=== PATIENT | male | born 1945 | race Hispanic/Latino ===

== ENCOUNTER 2017-07-19 13:57 | Observation (INO) | payer MEDICARE ==
[2017-07-19 14:09] VITALS: RESP 20
[2017-07-19] MEDS ORDERED: Sodium Chloride 0.9% 1,000 ML IV STA (15:14)
--- NOTE | 2017-07-19 15:20 | ED PDOC ---
HPI: Male Pain Time Seen by Provider: 07/19/17 14:59 Chief Complaint (Nursing): Male Genitourinary Chief Complaint (Provider): Fever, burning urination History Per: Patient History/Exam Limitations: no limitations Onset/Duration Of Symptoms: Hrs Current Symptoms Are (Timing): Still Present Quality Of Discomfort: Burning Associated Symptoms: Fever, Chills, Urinary Symptoms (Burning). denies: Nausea , Vomiting, Diarrhea Additional Complaint(s): 71 y/o m with Hx of BPH, TIA and Prediabetes presents c/o dysuria and low grade fever since Yesterday. Patient also c/o chills. He has Hx of BPH and UTI in the past. Denies nocturia, lower back pain, hesitance, headache, vomiting, nausea, hematuria, constipation or frequency. Highest temp 100F. Past Medical History Reviewed: Vital Signs Vital Signs: Last Vital Signs Temp 100 F H 07/19/17 14:05 Pulse 96 H 07/19/17 14:05 Resp 20 07/19/17 14:05 BP 119/66 07/19/17 14:05 Pulse Ox 95 07/19/17 14:05 - Medical History PMH: Benign Prostatic Hyperplasia, HTN, TIA - Family History Family History: States: Unknown Family Hx - Home Medications Home Medications: Ambulatory Orders Medication Instructions Recorded Ciprofloxacin [Cipro] 500 mg PO BID #14 tab 07/19/17 Clopidogrel [Plavix] 75 mg PO DAILY 07/19/17 Enalapril/Hydrochlorothiazide 1 tab PO DAILY 07/19/17 [Enalapril-Hctz 10-25 mg Tablet] Niacin [Plain Niacin] 1 tab PO HS 07/19/17 [place]-3S/Dha/Epa/Fish Oil [Fish 1 cap PO HS 07/19/17 Oil [place]-3 Softgel] Pravastatin Sodium [Pravachol] 40 mg PO HS 07/19/17 Tamsulosin [Flomax] 0.4 mg PO HS 07/19/17 - Allergies Allergies/Adverse Reactions: Allergies Allergy/AdvReac Type Severity Reaction Status Date / Time Penicillins Allergy RASH Verified 07/19/17 14:08 Review of Systems ROS Statement: Except As Marked, All Systems Reviewed And Found Negative Constitutional: Positive for: Fever, Chills Genitourinary Male: Positive for: Dysuria Physical Exam - Reviewed Vital Signs Reviewed: Yes - Physical Exam Appears: Positive for: Non-toxic, No Acute Distress Skin: Positive for: Normal Color, Warm Eye Exam: Positive for: EOMI, PERRL Cardiovascular/Chest: Positive for: Murmur (3/6 systolic), Irregularly Irregular Gastrointestinal/Abdominal: Positive for: Bowel Sounds, Soft. Negative for: Distended, Guarding, Rebound Back: Negative for: L CVA Tenderness, R CVA Tenderness Extremity: Positive for: Normal ROM. Negative for: Tenderness, Pedal Edema, Calf Tenderness Neurologic/Psych: Positive for: Alert, Oriented. Negative for: Motor/Sensory Deficits - Laboratory Results Result Diagrams: 07/19/17 16:00 07/19/17 16:00 - ECG O2 Sat by Pulse Oximetry: 95 - Progress ED Course And Treament: WBC elevated in urine and blood. VBG shows mild alkalosis with normal lactate. Patient received 1L IV fluids and CIpro 400mg IV once. Refused being admitted for obs to hosp. AMA notice filled and signed. Medical Decision Making Medical Decision Making: Fever and Dysuria R/O UTI F/U UA, CMP, VBG, CBC. Disposition - Clinical Impression Clinical Impression: Urinary tract infection, Left against medical advice - Disposition Disposition Time: 18:53 Condition: STABLE
[2017-07-19 16:11] LABS: BASO # 0.1 K/uL (0.0-0.2); BASO % 0.5 % (0.0-2.0); HEMATOCRIT 47.3 % (35.0-51.0); LYMPH # 0.8 K/uL (1.0-4.3); LYMPH % 4.7 % (20.0-40.0); MEAN CELL VOLUME 88.6 fl (80.0-94.0); MEAN CORPUSCULAR HEMOGLOBIN 28.5 pg (27.0-31.0); MEAN CORPUSCULAR HGB CONC 32.2 g/dL (33.0-37.0); MONO # 0.8 K/uL (0.0-0.8); MONO % 5.1 % (0.0-10.0); NEUT # 14.5 K/uL (1.8-7.0); NEUT % 89.7 % (50.0-75.0); NRBC % 0.1 % (0.0-0.0); PLATELET COUNT 106 K/uL (130-400); RED CELL DISTRIBUTION WIDTH 13.3 % (11.5-14.5); WHITE BLOOD COUNT 16.2 K/uL (4.8-10.8)
[2017-07-19 16:11] LABS: VENOUS BLOOD GAS BASE EXCESS 2.4 mmol/L (0.0-2.0); VENOUS BLOOD GAS PCO2 38 mmHg (40-60); VENOUS BLOOD PH 7.45 (7.32-7.43)
[2017-07-19 16:31] LABS: ALB/GLOB RATIO 1.4 (1.0-2.1); ALKALINE PHOSPHATASE 63 U/L (38-126); ALT/SGPT 40 U/L (21-72); AST/SGOT 23 U/L (17-59); BILIRUBIN,TOTAL 2.2 mg/dl (0.2-1.3); BLOOD UREA NITROGEN 12 mg/dl (9-20); CALCIUM 9.3 mg/dL (8.4-10.2); CARBON DIOXIDE 27 mmol/L (22-30); CHLORIDE 100 mmol/L (98-107); GFR AFRICAN-AMERICAN > 60; GLUCOSE,RANDOM 107 mg/dL (75-110); MAGNESIUM 1.7 MG/DL (1.6-2.3); PHOSPHOROUS 2.5 mg/dl (2.5-4.5); POTASSIUM 3.4 MMOL/L (3.6-5.0); SODIUM 137 mmol/l (132-148); TOTAL PROTEIN 7.5 G/DL (6.3-8.2)
[2017-07-19] MEDS ORDERED: Ciprofloxacin 400mg/200ml D5W 400 MG/200 ML BAG IVPB STA (16:40)
[2017-07-19 16:58] LABS: PARTIAL THROMBOPLASTIN TIME 29.3 Seconds (25.6-37.1)
[2017-07-19 16:58] LABS: RBC URINE 3 /hpf (0-3); URINE BACTERIA RARE (<OCC); URINE BILIRUBIN NEGATIVE (NEGATIVE); URINE BLOOD NEGATIVE (NEGATIVE); URINE CALCIUM OXALATE CRYSTALS RARE /hpf (<OCC); URINE COLOR YELLOW (YELLOW); URINE GLUCOSE (UA) NEG (Normal); URINE KETONE NEGATIVE (NEGATIVE); URINE LEUKOCYTE ESTERASE MOD Leu/uL (Negative); URINE PROTEIN 30 mg/dL (NEGATIVE); URINE UROBILINOGEN 0.2-1.0 mg/dL (0.2-1.0); WBC URINE 66 /hpf (0-5)
--- NOTE | 2017-07-19 17:27 | RAD ---
HISTORY: Fever COMPARISON: No prior. FINDINGS: LUNGS: No active pulmonary disease. PLEURA: No significant pleural effusion identified, no pneumothorax apparent. CARDIOVASCULAR: Cardiomegaly. No evidence of acute, significant cardiovascular disease. OSSEOUS STRUCTURES: No significant abnormalities. VISUALIZED UPPER ABDOMEN: Normal. OTHER FINDINGS: None. IMPRESSION: No active disease.
[2017-07-19] MEDS ORDERED: Ciprofloxacin 400mg/200ml D5W 400 MG/200 ML BAG IVPB ONE (17:49)
[2017-07-19] MEDS ORDERED: Potassium Chloride 20 mEq/15 ml LIQ UD PO STA (18:18)
[2017-07-19] MEDS ORDERED: Sodium Chloride 0.45% 1,000 ML IV SCH (18:30)
--- NOTE | 2017-07-19 18:40 | CP.PCM.HP ---
Past Patient History - Past Social History Smoking Status: Never Smoked - CARDIAC Hx Hypertension: Yes - NEUROLOGICAL Hx Transient Ischemic Attacks (TIA): Yes - GENITOURINARY/GYNECOLOGICAL Hx Urinary Tract Infection: Yes - PSYCHIATRIC Hx Substance Use: No - SURGICAL HISTORY Hx Surgeries: Yes Other/Comment: prostate sx - ANESTHESIA Hx Anesthesia: Yes Hx Anesthesia Reactions: No Meds Allergies/Adverse Reactions: Allergies Allergy/AdvReac Type Severity Reaction Status Date / Time Penicillins Allergy RASH Verified 07/19/17 14:08 Results - Vital Signs Recent Vital Signs: Last Vital Signs Temp 100 F H 07/19/17 14:05 Pulse 96 H 07/19/17 14:05 Resp 20 07/19/17 14:05 BP 119/66 07/19/17 14:05 Pulse Ox 95 07/19/17 15:23 - Labs Result Diagrams: 07/19/17 16:00 07/19/17 16:00 Labs: Laboratory Results - last 24 hr 07/19/17 07/19/17 07/19/17 15:46 16:00 16:00 WBC 16.2 H RBC 5.33 Hgb 15.2 Hct 47.3 MCV 88.6 MCH 28.5 MCHC 32.2 L RDW 13.3 Plt Count 106 L MPV 11.0 Neut % (Auto) 89.7 H Lymph % (Auto) 4.7 L [place] % (Auto) 5.1 Eos % (Auto) 0.0 Baso % (Auto) 0.5 Neut # 14.5 H Lymph # 0.8 L [place] # 0.8 Eos # 0.0 Baso # 0.1 PT INR APTT pO2 VBG pH VBG pCO2 VBG HCO3 VBG Total CO2 VBG O2 Sat (Calc) VBG Base Excess VBG Potassium Glucose Lactate FiO2 Sodium 137 Potassium 3.4 L Chloride 100 Carbon Dioxide 27 Anion Gap 13 BUN 12 Creatinine 1.0 Est GFR ( Amer) > 60 Est GFR (Non-Af Amer) > 60 Random Glucose 107 Calcium 9.3 Phosphorus 2.5 Magnesium 1.7 Total Bilirubin 2.2 H AST 23 ALT 40 Alkaline Phosphatase 63 Total Protein 7.5 Albumin 4.4 Globulin 3.1 Albumin/Globulin Ratio 1.4 Venous Blood Potassium Urine Color Yellow Urine Clarity Slighty-cloudy Urine pH 6.0 Ur Specific [place] 1.015 Urine Protein 30 Urine Glucose (UA) Neg Urine Ketones Negative Urine Blood Negative Urine Nitrate Negative Urine Bilirubin Negative Urine Urobilinogen 0.2-1.0 Ur Leukocyte Esterase Mod Urine RBC (Auto) 3 Urine Microscopic WBC 66 H Ur Squamous Epith Cells < 1 Calcium Oxalate Crystal Rare Urine Bacteria Rare 07/19/17 07/19/17 16:00 16:01 WBC RBC Hgb Hct MCV MCH MCHC RDW Plt Count MPV Neut % (Auto) Lymph % (Auto) [place] % (Auto) Eos % (Auto) Baso % (Auto) Neut # Lymph # [place] # Eos # Baso # PT 13.2 H INR 1.2 APTT 29.3 pO2 43 VBG pH 7.45 H VBG pCO2 38 L VBG HCO3 26.4 VBG Total CO2 27.6 VBG O2 Sat (Calc) 91.0 H VBG Base Excess 2.4 H VBG Potassium 3.3 L Glucose 122 H Lactate 1.4 FiO2 21.0 Sodium 133.0 Potassium Chloride 102.0 Carbon Dioxide Anion Gap BUN Creatinine Est GFR ( Amer) Est GFR (Non-Af Amer) Random Glucose Calcium Phosphorus Magnesium Total Bilirubin AST ALT Alkaline Phosphatase Total Protein Albumin Globulin Albumin/Globulin Ratio Venous Blood Potassium 3.3 L Urine Color Urine Clarity Urine pH Ur Specific [place] Urine Protein Urine Glucose (UA) Urine Ketones Urine Blood Urine Nitrate Urine Bilirubin Urine Urobilinogen Ur Leukocyte Esterase Urine RBC (Auto) Urine Microscopic WBC Ur Squamous Epith Cells Calcium Oxalate Crystal Urine Bacteria
[2017-07-19] MEDS ORDERED: Potassium Chloride 20 mEq ER Tab PO ONE ×2 (19:06→19:08)
[2017-07-19 19:21] VITALS: BP 104/65; PULSE 79; TEMP 99; O2SAT 98
[2017-07-19 19:43] LABS: NEUTROPHIL 86 % (42-75); TOTAL CELLS COUNTED 100
[2017-07-19 19:44] LABS: SMUDGE CELLS PRESENT
[2017-07-19] MEDS ORDERED: Ciprofloxacin 400mg/200ml D5W 400 MG/200 ML BAG IVPB SCH (21:00)
[2017-07-19] MEDS ORDERED: NIACIN PO SCH (22:00)
[2017-07-19] MEDS ORDERED: Omega-3-Acid Ethyl Esters 1 GM Cap PO SCH (22:00)
[2017-07-19] MEDS ORDERED: Pravastatin Sodium 40 MG TAB PO SCH (22:00)
[2017-07-19] MEDS ORDERED: EPA PO SCH (22:00)
[2017-07-19] MEDS ORDERED: DHA PO SCH (22:00)
[2017-07-19] MEDS ORDERED: FISH OIL PO SCH (22:00)
[2017-07-19] MEDS ORDERED: OMEGA PO SCH (22:00)
[2017-07-20] MEDS ORDERED: Patient's Own Med (Enalapril/Hydrochlorothiazide [Enalapril-Hctz 10-25 Mg Tablet] 1 TAB) PO SCH (09:00)
== END 2017-07-19 19:51 | disposition left against medical advice (07) ==
LOC: H.ER 13:57 → H.ERHOLD 17:01
PROVIDERS: ADMIT Internal Medicine; ATTEND Internal Medicine
DX: N39.0 Urinary tract infection, site not specified (principal); N40.0 Benign prostatic hyperplasia without lower urinary tract symptoms; Z79.02 Long term (current) use of antithrombotics/antiplatelets; Z79.899 Other long term (current) drug therapy; Z86.73 Personal history of transient ischemic attack (TIA), and cerebral infarction without residual deficits; Z87.440 Personal history of urinary (tract) infections; R73.03 Prediabetes; R30.0 Dysuria; R50.9 Fever, unspecified; I10 Essential (primary) hypertension
CPT/HCPCS: 71010; 80053; 81003; 82803; 83735; 84100; 85025; 85610; 85730; 87040; 87086; 96361; 96365; 99284; G0378; J0744; J7040

== ENCOUNTER 2017-10-27 10:47 | Emergency (ER) | payer MEDICARE ==
[2017-10-27 11:07] VITALS: BMI 30.2
[2017-10-27] MEDS ORDERED: Oxycodone/Acetaminophen 5/325 mg Tab PO STA (11:17)
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
[2017-10-27] MEDS ORDERED: Oxycodone/Acetaminophen 5/325 mg Tab ONE ×2 (11:30→11:32)
[2017-10-27 11:56] LABS: SQUAMOUS EPITHIAL < 1 /hpf (0-5); URINE BACTERIA RARE (<OCC); URINE BILIRUBIN NEGATIVE (NEGATIVE); URINE BLOOD SMALL (NEGATIVE); URINE CLARITY CLOUDY (Clear); URINE COLOR YELLOW (YELLOW); URINE GLUCOSE (UA) NEG (Normal); URINE LEUKOCYTE ESTERASE LARGE Leu/uL (Negative); URINE PROTEIN NEGATIVE (NEGATIVE); URINE UROBILINOGEN 0.2-1.0 mg/dL (0.2-1.0)
--- NOTE | 2017-10-27 14:29 | US ---
HISTORY: L testicular pain TECHNIQUE: Realtime sonography through the scrotum with color and doppler flow. COMPARISON: None Available. FINDINGS: RIGHT TESTICLE: Measures 4.2 x 3.0 x 3.0 cm. A lateral upper to midpole right testicular cyst appears simple measuring 0.6 x 0.5 x 0.5 cm avascular on color ultrasound with remaining testicular echotexture unremarkable overall. A small appendix is seen at the superior portion of the right testicle. Normal color Doppler blood flow was appreciated at the right testicle. No evidence to suggest testicular torsion. RIGHT EPIDIDYMIS: Epididymal head measures 0.8 x 0.7 x 1.2 cm. A 3 mm epididymal cyst seen at the right epididymal head with remainder the a right epididymis unremarkable. LEFT TESTICLE: Measures 4.5 x 3.1 x 3.1 cm. At the mid to lower pole left testicle, there is a complex cystic structure measuring 0.8 x 0.5 x 0.7 cm, avascular on color per ultrasound and appearing well circumscribed in the periphery. In addition, 2 tiny similar foci are seen at the upper pole measuring 3 mm greatest dimension at the more cephalad of the 2 foci and 4 mm at the more caudad. Both are avascular on color Doppler ultrasound. A testicular appendix is seen at the upper pole similar to that seen at the right. No evidence to suggest testicular torsion. LEFT EPIDIDYMIS: Epididymal head measures 1.0 x 0.7 x 1.5 cm. 4 mm epididymal cysts identified at the head with the body exhibiting hyperemia on color per ultrasound suspicious for epididymitis. HYDROCELE: Moderately large bilateral hydroceles are identified which are symmetric. VARICOCELE: A minimal left varicocele appears to be developing. There is a [id number] right varicocele identified. OTHER FINDINGS: None. IMPRESSION: 1. Hyperemic left epididymal changes most compatible with epididymitis. No definite orchitis pattern. 2. Solitary simple cyst right testicle. Two to three small complex cysts are identified at the left testicle. Consider sonographic follow-up. 3. Tiny bilateral epididymal cysts. 4. No evidence to suggest testicular torsion bilaterally.
[2017-10-27] MEDS ORDERED: levoFLOXacin 500 mg in D5W 500 MG/100 ML BAG IVPB STA (14:37)
[2017-10-27] MEDS ORDERED: levoFLOXacin 500 mg in D5W 500 MG/100 ML BAG IVPB ONE (14:40)
[2017-10-27] MEDS ORDERED: levoFLOXacin 500 MG TAB PO STA (14:41)
[2017-10-27 15:17] VITALS: BP 130/78; PULSE 78; RESP 19; TEMP 97
[2017-10-27 19:00] VITALS: O2SAT 97
== END 2017-10-27 15:17 | disposition home or self-care (01) ==
LOC: H.ER 10:47
DX: N45.1 Epididymitis (principal); I10 Essential (primary) hypertension; N40.0 Benign prostatic hyperplasia without lower urinary tract symptoms; Z86.73 Personal history of transient ischemic attack (TIA), and cerebral infarction without residual deficits; Z88.0 Allergy status to penicillin

== ENCOUNTER 2017-12-31 20:56 | Emergency (ER) | payer MEDICARE ==
[2017-12-31 20:57] VITALS: BMI 30.2
--- NOTE | 2017-12-31 21:55 | ED PDOC ---
HPI: Male Pain Time Seen by Provider: 12/31/17 21:09 Chief Complaint (Nursing): Male Genitourinary Chief Complaint (Provider): Male Genitourinary History Per: Patient History/Exam Limitations: no limitations Onset/Duration Of Symptoms: Days (x3) Current Symptoms Are (Timing): Still Present Additional Complaint(s): 72 year old male, with pmhx of BPH, HTN, TIA, and HLD presents to the emergency department complaining of dysuria for three days. Denies nausea, vomiting, hematuria, and abdominal pain. Temp is 99.4 PMD: Geraldo Flowers Past Medical History Reviewed: Historical Data, Nursing Documentation, Vital Signs Vital Signs: Last Vital Signs Temp 98.6 F 12/31/17 20:57 Pulse 78 12/31/17 20:57 Resp 18 12/31/17 20:57 BP 138/85 12/31/17 20:57 Pulse Ox 100 12/31/17 20:57 - Medical History PMH: Benign Prostatic Hyperplasia, HTN, Hyperlipidemia, TIA - Surgical History Other surgeries: turp - Family History Family History: States: Unknown Family Hx - Social History Alcohol: None - Home Medications Home Medications: Ambulatory Orders Medication Instructions Recorded Ciprofloxacin [Cipro] 500 mg PO BID #14 tab 07/19/17 Clopidogrel [Plavix] 75 mg PO DAILY 07/19/17 Enalapril/Hydrochlorothiazide 1 tab PO DAILY 07/19/17 [Enalapril-Hctz 10-25 mg Tablet] Niacin [Plain Niacin] 1 tab PO HS 07/19/17 [place]-3S/Dha/Epa/Fish Oil [Fish 1 cap PO HS 07/19/17 Oil [place]-3 Softgel] Pravastatin Sodium [Pravachol] 40 mg PO HS 07/19/17 Tamsulosin [Flomax] 0.4 mg PO HS 07/19/17 Acetaminophen with Codeine 1 tab PO Q6H PRN #10 tab 10/27/17 [Tylenol with Codeine No. 3 300 mg-30 mg] levoFLOXacin [Levaquin] 500 mg PO DAILY #9 tab 10/27/17 Ciprofloxacin [Cipro] 500 mg PO BID #10 tab 12/31/17 - Allergies Allergies/Adverse Reactions: Allergies Allergy/AdvReac Type Severity Reaction Status Date / Time Penicillins Allergy RASH Verified 12/31/17 20:57 Review of Systems ROS Statement: Except As Marked, All Systems Reviewed And Found Negative Constitutional: Positive for: Fever (99.4) Gastrointestinal: Negative for: Nausea, Vomiting, Abdominal Pain Genitourinary Male: Positive for: Dysuria. Negative for: Hematuria Physical Exam - Reviewed Nursing Documentation Reviewed: Yes Vital Signs Reviewed: Yes - Physical Exam Appears: Positive for: Non-toxic, No Acute Distress Head Exam: Positive for: ATRAUMATIC, NORMOCEPHALIC Skin: Positive for: Normal Color, Warm, Dry Eye Exam: Positive for: Normal appearance Neck: Positive for: Normal, Painless ROM, Supple Cardiovascular/Chest: Positive for: Regular Rate, Rhythm. Negative for: Murmur Respiratory: Positive for: Normal Breath Sounds. Negative for: Accessory Muscle Use, Respiratory Distress Gastrointestinal/Abdominal: Positive for: Normal Exam, Bowel Sounds, Soft. Negative for: Tenderness, Distended, Guarding, Rebound Back: Positive for: Normal Inspection. Negative for: L CVA Tenderness, R CVA Tenderness Extremity: Positive for: Normal ROM. Negative for: Pedal Edema, Calf Tenderness Neurologic/Psych: Positive for: Alert, Oriented. Negative for: Motor/Sensory Deficits - Laboratory Results Result Diagrams: 12/31/17 22:30 12/31/17 22:30 - ECG O2 Sat by Pulse Oximetry: 100 (RA) Pulse Ox Interpretation: Normal Medical Decision Making Medical Decision Making: Time: 21:33 Initial Impression: Urinary tract infection Initial Plan: --CMP --ED Urine dipstick --CBC with differential --Urine Culture --Urinalysis Scribe Attestation: Documented by Shweta Maria, acting as a scribe for Dena Freeman MD. Provider Scribe Attestation: All medical record entries made by the Scribe were at my direction and personally dictated by me. I have reviewed the chart and agree that the record accurately reflects my personal performance of the history, physical exam, medical decision making, and the department course for this patient. I have also personally directed, reviewed, and agree with the discharge instructions and disposition. Disposition - Clinical Impression Clinical Impression: Urinary tract infection - Disposition Referrals: [facility] [Outside] Lonnie Rabago Jr., MD [Staff Provider] - Geraldo Flowers MD [Family Provider] - Disposition: Routine/Home Disposition Time: 23:42 Condition: IMPROVED Prescriptions: Ciprofloxacin [Cipro] 500 mg PO BID #10 tab Instructions: Urinary Tract Infections in Adults Forms: [employer] (Telugu) Print Language: GUINEAN
[2017-12-31 22:39] LABS: BASO # 0.1 K/uL (0.0-0.2); BASO % 0.7 % (0.0-2.0); EOS # 0.1 K/uL (0.0-0.7); EOS % 0.9 % (0.0-4.0); LYMPH # 2.7 K/uL (1.0-4.3); LYMPH % 18.4 % (20.0-40.0); MEAN CELL VOLUME 88.6 fl (80.0-94.0); MEAN CORPUSCULAR HEMOGLOBIN 28.8 pg (27.0-31.0); MEAN CORPUSCULAR HGB CONC 32.5 g/dL (33.0-37.0); MEAN PLATELET VOLUME 11.7 fl (7.2-11.7); MONO # 1.2 K/uL (0.0-0.8); MONO % 8.3 % (0.0-10.0); NEUT # 10.4 K/uL (1.8-7.0); NEUT % 71.7 % (50.0-75.0); RBC 5.22 Mil/uL (4.40-5.90); RED CELL DISTRIBUTION WIDTH 13.6 % (11.5-14.5); WHITE BLOOD COUNT 14.5 K/uL (4.8-10.8)
[2017-12-31 22:42] LABS: SQUAMOUS EPITHIAL < 1 /hpf (0-5); URINE BACTERIA RARE (<OCC); URINE BILIRUBIN NEGATIVE (NEGATIVE); URINE BLOOD NEGATIVE (NEGATIVE); URINE CLARITY SLIGHTY-CLOUDY (Clear); URINE COLOR STRAW (YELLOW); URINE GLUCOSE (UA) NEG (Normal); URINE LEUKOCYTE ESTERASE LARGE Leu/uL (Negative); URINE PROTEIN NEGATIVE (NEGATIVE); URINE UROBILINOGEN 0.2-1.0 mg/dL (0.2-1.0)
[2017-12-31 22:47] LABS: ALB/GLOB RATIO 1.3 (1.0-2.1); ALBUMIN 4.1 g/dL (3.5-5.0); ALT/SGPT 32 U/L (21-72); AST/SGOT 23 U/L (17-59); BLOOD UREA NITROGEN 12 mg/dl (9-20); CALCIUM 9.3 mg/dL (8.4-10.2); GFR AFRICAN-AMERICAN > 60; GFR NON-AFRICAN AMERICAN > 60
[2017-12-31] MEDS ORDERED: Ciprofloxacin 400mg/200ml D5W 400 MG/200 ML BAG IVPB STA (22:54)
[2017-12-31] MEDS ORDERED: Ciprofloxacin 400mg/200ml D5W 400 MG/200 ML BAG IVPB ONE (23:07)
[2018-01-01 00:44] VITALS: BP 138/88; PULSE 72; RESP 14; TEMP 98.8
[2018-01-01 20:10] VITALS: O2SAT 100
== END 2018-01-01 00:44 | disposition home or self-care (01) ==
LOC: H.ER 20:56
DX: N39.0 Urinary tract infection, site not specified (principal); Z86.73 Personal history of transient ischemic attack (TIA), and cerebral infarction without residual deficits; Z88.0 Allergy status to penicillin; N40.0 Benign prostatic hyperplasia without lower urinary tract symptoms; I10 Essential (primary) hypertension; E78.5 Hyperlipidemia, unspecified
CPT/HCPCS: 80053; 81003; 85025; 87086; 96365; 99284; J0744